=== PATIENT | male | born 1950 | race Caucasian/White ===

== ENCOUNTER 2020-01-23 13:13 | Outpatient (CLI) | payer SELFPAY ==
[~2020-01-23 13:13] MED LIST: FURO-150 PO; LISI-604 PO; METO50TA7 PO; SUMA6VIA19 SQ
[2020-01-23] MEDS ORDERED: iohexol 350 MG/ML 50ML vial IV ONE (13:41)
[2020-01-23] MEDS ORDERED: iohexol 350MG/ML 100ml bottle IV ONE (13:41)
== END 2020-01-23 23:59 | disposition home or self-care (01) ==
LOC: 64 CT 13:13
PROVIDERS: ATTEND Internal Medicine Cardiovascular Disease
DX: I35.0 Nonrheumatic aortic (valve) stenosis (principal); I70.0 Atherosclerosis of aorta; R06.02 Shortness of breath; I65.29 Occlusion and stenosis of unspecified carotid artery
CPT/HCPCS: 71275; 74174; Q9967

== ENCOUNTER 2020-01-28 08:19 | Outpatient (CLI) | payer OTHER ==
[~2020-01-28] VITALS: Ht 177.8 cm; Wt 93.9 kg
[2020-01-28] MEDS ORDERED: albuterol 2.5 MG/3 ML nebule NEB ONE (09:15)
== END 2020-01-28 23:59 | disposition home or self-care (01) ==
LOC: RT 08:19
PROVIDERS: ATTEND Internal Medicine Cardiovascular Disease
DX: I35.0 Nonrheumatic aortic (valve) stenosis (principal); R06.02 Shortness of breath; I65.29 Occlusion and stenosis of unspecified carotid artery
CPT/HCPCS: 94010; 94727; 94729

== ENCOUNTER → 2020-04-03 | Outpatient (CLI) | payer OTHER ==
[~2020-04-03] VITALS: Ht 182.9 cm; Wt 102.3 kg
[~2020-04-03] MED LIST changes: +ASPI-1265 PO; +CLOP75TA34 PO; -LISI-604 PO; +LISI-790 PO; -METO50TA7 PO; +TRAZ150T78 PO
--- NOTE | 2020-04-03 15:35 | NUR ---
Mr. Naidu and his were seen for 30 day f/up today. Echo and EKG sent from primary historiography professor. 5 meter walk test, KCCQ12 and vitals performed. Patient discussed improvement of symptoms. Patient will f.up again in about 1 year.
[2020-04-03 15:38] VITALS: BP 130/77
== END | disposition home or self-care (01) ==
LOC: TAVR 12:19
PROVIDERS: ATTEND Internal Medicine Cardiovascular Disease
DX: Z48.812 Encounter for surgical aftercare following surgery on the circulatory system (principal); I35.0 Nonrheumatic aortic (valve) stenosis; R06.02 Shortness of breath; I65.29 Occlusion and stenosis of unspecified carotid artery